=== PATIENT | male | born 1950 | race Caucasian/White ===

== ENCOUNTER 2024-07-22 12:25 | Emergency (ER) | payer MEDICARE, SELFPAY ==
--- NOTE | 2024-07-22 13:13 | ED.SKININJ ---
HPI-Injury
General
Chief Complaint: Bite
Source: patient
Time Seen by Provider: 07/22/24 12:59
History of Present Illness-Injury
Is this injury a work related problem?: No
Is pt an associate of [facility]?: No
Initial Injury comments:
See MDM
Past History
Past History
ED Past Medical History: None
ED Past Surgical History: Cardiac
Social History
Tobacco: Non-smoker
Alcohol: None
Phy Exam
Physical Exam
Physical Exam:
See MDM
Course
Orders/Labs/Results
Orders:
Orders
07/22/24 13:05
Dexamethasone Pf [Decadron] 10 mg PO NOW STA
MDM/Problems Addressed
Differential Diagnosis Includes:
HPI and MDM Narrative:
74-year-old male presenting for evaluation of bee sting to his left wrist. Patient was worried because the swelling is increasing. He denies redness. Denies numbness or tingling. He took Benadryl
Given the spreading allergic reaction, will give one-time dose of Decadron. Ice was placed on the area. Patient showing no signs of anaphylaxis
Physical exam
General: Well appearing and non-toxic
HEENT: protecting airway
Neck: appears supple
CV: No evidence of cyanosis
Resp: No accessory muscle use
Abd: Non-distended
Extremities: No deformities
Neuro: alert
Psych: Normal affect
Skin: Bee sting to palmar aspect of left wrist with mild surrounding edema. No skin changes
Problems Addressed including Acute and Chronic Conditions affecting care:
1. Bee sting
Acuity: acute
Prognosis: stable
Details: Given swelling despite Benadryl, will give one-time dose of Decadron
Differential Diagnosis (but not limited to): Bee sting, insect bite
Drug therapy (if applicable): OTC meds, please see d/c instruction regarding Rx drugs
Amount and/or Complexity of Data Reviewed
Clinical info obtained from: Patient
External data reviewed: N/A
Labs I independently reviewed (but not limited to): N/A
Radiology: N/A
Pulse Ox: not hypoxic
EKG independently reviewed: N/A
Pantry Steward/Stewardess: N/A
Critical Care: N/A
Risk of Complication:
Social Determinants of health: Good social support
Discussed with other providers: N/A
Escalation of Care includes Admit/Obs: After being observed in the Emergency Department, pt stable for discharge.
Occasional wrong word or 'sound a like' substitutions may have occurred due to the inherent limitations of voice recognition software. Read the chart carefully and recognize, using context, where substitutions have occurred.
*Critical Care Note
Total Time (30-74mins, 75-104mins- exclusive of procedures): Not Applicable
ED Attending Note
-
Portions of this chart may have been created with voice recognition software.� Occasional wrong word or��sound alike� substitutions may have occurred due to the inherent limitations of voice recognition software.
Discharge Plan
Departure
Patient Disposition: Home (Routine Discharge)
Date of Disposition: 07/22/24
Time of Disposition: 13:18
Patient with high blood pressure during this ER visit?: No
Discharge Problem:
Insect sting
Instructions: Insect Bites and Stings (DC)
Activity Restrictions/Additional Instructions:
Please return for any worsening symptoms.
You may return at any time if you have further concerns.
Please follow up with your doctor at the first available appointment, preferably this week.
Thank you for choosing [facility].
Interventions
Interventions:
*Risk Screen - Suicide Last Done: 07/22/24 12:30
*Neglect/Abuse Screening Last Done: 07/22/24 12:30
Discharge Date and Time
Print Language: [place]
[2024-07-22] MEDS: DECADRON 10 MG PO (13:16)
[2024-07-22 13:19] VITALS: BMI 26.4
== END 2024-07-22 13:55 | disposition home or self-care (01) ==
LOC: EMR 12:25
PROVIDERS: EMERGENCY PHYSICIAN Student in an Organized Health Care Education/Training Program; FAMILY PHYSICIAN Family Medicine
DX: T63.441A Toxic effect of venom of bees, accidental (unintentional), initial encounter (principal); M79.89 Other specified soft tissue disorders
CPT/HCPCS: 99283